=== PATIENT | male | born 1980 | race Two or more races ===

== ENCOUNTER 2021-02-28 11:35 | Emergency (ER) | payer OTHER ==
[~2021-02-28] VITALS: Ht 177.8 cm; Wt 90.7 kg
[~2021-02-28 11:35] MED LIST: CEPHALEXIN500 MG; DICLOFENAC POTA50 MG; [UNRECOGNIZED DRUG - CODE]
[2021-02-28] MEDS ORDERED: NORFLEX100MG PO (14:42)
[2021-02-28] MEDS ORDERED: KETO10TA2 PO (14:42)
== END 2021-02-28 14:53 | disposition home or self-care (01) ==
LOC: ER 11:35
DX: M54.9 Dorsalgia, unspecified (principal)

== ENCOUNTER 2025-04-03 04:03 | Emergency (ER) | payer OTHER ==
[~2025-04-03] VITALS: Ht 172.7 cm; Wt 81.6 kg
[~2025-04-03 04:03] MED LIST changes: +KETO10TA2 PO; +NORFLEX100MG PO
[2025-04-03] MEDS ORDERED: MORPHINE SULFATE 4 MG/ML CARTRIDGE IV STA ×2 (04:33→06:40)
[2025-04-03] MEDS ORDERED: RINGERS SOLUTION,LACTATED 1,000 ML IV STA (04:33)
[2025-04-03] MEDS ORDERED: ORPHENADRINE CITRATE 30 MG/ML AMPUL IV STA (04:53)
[2025-04-03 06:07] LABS: BASO % 0.5 % (0.1-1.2); EOS # 0.14 (0.04-0.54); EOS % 0.9 % (0.7-7.0); LYMPH # 1.66 (1.18-3.74); LYMPH % 10.5 % (19.3-53.1); MEAN PLATELET VOLUME 10.00 fl (9.4-12.4); MONO # 0.77 (0.24-0.82); MONO % 4.9 % (4.7-12.5); NEUT # 13.06 (1.56-6.13); NEUT % 82.8 % (34.0-71.1); RED CELL DISTRIBUTION WIDTH 12.6 % (11.6-14.4)
[2025-04-03 08:02] LABS: ALT/SGPT 45.0 U/L (12-78); AST/SGOT 29.0 U/L (15-37); BILIRUBIN TOTAL 0.49 mg/dL (0.3-1.2); BUN CREA RATIO 17.0 (7.0-25.0); CREATININE SERUM 0.98 mg/dL (0.70-1.30); GFR 83.48; GLOBULINA 3.2 G/DL (2.4-3.5); GLUCOSE FASTING 117.0 mg/dL (65-100); OSMOLALITY SERUM 288.0 MOSM/KG (275-295)
[2025-04-03 08:04] LABS: INR 1.01
[2025-04-03 11:15] LABS: URINE APPEARANCE Clear; URINE BILIRRUBIN Negative (NEGATIVE); URINE BLOOD Negative; URINE COLOR Yellow; URINE GLUCOSE Negative (NEGATIVE); URINE KETONE 15 (NEGATIVE); URINE LEUKOCYTE Negative; URINE NITRATE Negative; URINE PROTEIN Trace (NEGATIVE); URINE UROBILINOGEN 1.0 E.U./dl
[2025-04-03 11:19] LABS: URINE BACTERIA 4.7 uL (0.0-1933); URINE CAST 1.46 uL (0.0-1.40); URINE EPITHELIAL CELLS 3.5 uL (0.0-38.8); URINE RBC 4.6 uL (0.0-20.8); URINE WBC 5.8 uL (0.0-23.2)
[2025-04-03 12:24] LABS: COCAINE POSITIVE (NEGATIVE); METHADONE NEGATIVE (NEGATIVE); OPIATES POSITIVE (NEGATIVE); THC ( Cannabinoids) POSITIVE (NEGATIVE)
== END 2025-04-03 11:22 | disposition home or self-care (01) ==
LOC: ER 04:03
PROVIDERS: Physician Assistant Medical
DX: S02.2XXA Fracture of nasal bones, initial encounter for closed fracture (principal); S20.213A Contusion of bilateral front wall of thorax, initial encounter; S26.91XA Contusion of heart, unspecified with or without hemopericardium, initial encounter; V29.99XA Rider (driver) (passenger) of other motorcycle injured in unspecified traffic accident, initial encounter; Y93.89 Activity, other specified; Y92.413 State road as the place of occurrence of the external cause; Y99.9 Unspecified external cause status; J43.8 Other emphysema; R79.89 Other specified abnormal findings of blood chemistry